=== PATIENT | male | born 1985 | race Two or more races ===

== ENCOUNTER 2020-06-20 07:30 | Emergency (ER) | payer OTHER ==
[~2020-06-20] VITALS: Ht 165.1 cm; Wt 63.5 kg
[2020-06-20 07:38] VITALS: BP 115/66
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
[2020-06-20] MEDS ORDERED: DEXT5TAB15 PO (08:08)
--- NOTE | 2020-06-20 08:21 | NUR ---
Patient given written and verbal discharge instructions. Patient verbalizes understanding of instructions. Patient is ambulatory with steady gait. Refuses offer of jail placement. Patient given list of available shelters in surrounding area.
== END 2020-06-20 08:22 | disposition home or self-care (01) ==
LOC: ER 07:32
DX: S61.412D Laceration without foreign body of left hand, subsequent encounter (principal); S61.411D Laceration without foreign body of right hand, subsequent encounter; S81.812D Laceration without foreign body, left lower leg, subsequent encounter; S81.811D Laceration without foreign body, right lower leg, subsequent encounter; Z60.2 Problems related to living alone; W26.8XXD Contact with other sharp object(s), not elsewhere classified, subsequent encounter